=== PATIENT | male | born 1995 | race Native Hawaiian/Other Pacific Islander ===

== ENCOUNTER 2018-10-07 07:15 | Emergency (ER) | payer OTHER ==
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
[2018-10-07] MEDS ORDERED: IBUPROFEN PO ONE (09:44)
[2018-10-07] MEDS ORDERED: TESSALON PERLES PO ONE (09:44)
[2018-10-07] MEDS ORDERED: LIDOCAINE VISCOUS 2% MM ONE (09:45)
[2018-10-07] MEDS ORDERED: DECADRON IM ONE (10:06)
[2018-10-07] MEDS ORDERED: DUONEB *Not for PRN Use IH ONE (10:06)
--- NOTE | 2018-10-07 10:11 | XRay Report ---
PROCEDURE: XR CHEST ROUTINE 2V TECHNIQUE: Chest radiograph, PA and lateral views. HISTORY: cough COMPARISONS: None currently available. FINDINGS: Cardiac silhouette is within normal limits. AP film is overpenetrated. There are no suspicious osseous lesions. IMPRESSION: * No acute cardiac findings. * Overpenetrated film limits evaluation of the lungs. Repeat chest x-ray is recommended. This document is electronically signed by Juan Quiros MD., October 07 2018 10:08:38 AM ET
[2018-10-07 10:12] LABS: Hematocrit 46.2 % (35.5-45.6); Hemoglobin 15.6 gm/dl (11.8-15.2); Mean Corpuscular HGB Conc 34 % (32-34); Mean Corpuscular Volume 88 fl (84-94); Platelet Count 213 K/mm3 (140-440); Red Blood Count 5.24 M/mm3 (3.65-5.03); Red Cell Distribution Width 14.7 % (13.2-15.2)
[2018-10-07 10:51] LABS: BUN/Creatinine Ratio 23; Blood Urea Nitrogen 16 mg/dL (9-20); Calcium 9.2 mg/dL (8.4-10.2); Hemolysis Index 24
[2018-10-07 10:53] LABS: Total Cells Counted 100
[2018-10-07 10:54] LABS: Eosinophils % (Manual) 0 % (0.0-4.3); Platelet Estimate Consistent w Auto; RBC Morphology Normal
[2018-10-07] MEDS ORDERED: DECADRON IV ONE (10:58)
[2018-10-07 12:51] VITALS: BP 102/79
--- NOTE | 2018-10-07 13:05 | Cat Scan Report ---
PROCEDURE: CT ANGIO CHEST TECHNIQUE: Computerized tomographic angiography of the chest was performed after the IV injection of iodinated nonionic contrast including image processing. The image data was postprocessed using 2-di mensional multiplanar reformatted (MPR) and 3-dimensional (MIP and/or volume rendered) techniques. Au tomated exposure control, adjustment of mA and/or kV according to patient size, or iterative reconstr uction dose optimization techniques were utilized. Coronal and sagittal reconstructed imaging provide d. CT DOSE LENGTH PRODUCT: 377.6 mGy-cm. HISTORY: Shortness of breath. Chest pain COMPARISONS: None currently available. FINDINGS: No pneumothorax. No effusion. No consolidation. No endobronchial lesion. Main pulmonary artery is unremarkable. No pulmonary embolism. No aneurysm. No dissection. Major branch arteries are within normal limits. No significant atheroscle rotic disease. Cardiac silhouette is within normal limits. No pericardial effusion. No obvious coronary artery disea se. There is no axillary adenopathy. There is no hilar or mediastinal mass or adenopathy. Limited images of the thyroid gland are unremarkable. Limited images of the esophagus are unremarkable. Bones: No suspicious osseous lesions on this limited examination of the skeleton. Metastatic disease better evaluated with bone scan. Degenerative changes are present in the spine. IMPRESSION: * No acute findings. This document is electronically signed by Juan Quiros MD., October 07 2018 01:03:16 PM ET
== END 2018-10-07 13:30 | disposition home or self-care (01) ==
LOC: ED 07:15
DX: J40 Bronchitis, not specified as acute or chronic (principal)
CPT/HCPCS: 36415; 71046; 71275; 80048; 84484; 85007; 85025; 93005; 93010; 94640; 96374; 99284; J1100; Q9967

== ENCOUNTER 2019-06-02 10:10 | Emergency (ER) | payer OTHER ==
[2019-06-02 10:19] VITALS: BP 109/70
[2019-06-02] MEDS ORDERED: predniSONE 20 MG TAB PO ONE (12:12)
[2019-06-02] MEDS ORDERED: KETOROLAC 60 MG/2 ML INJ IM ONE (12:12)
--- NOTE | 2019-06-02 12:54 | XRay Report ---
LUMBAR SPINE 2 VIEWS. INDICATION / CLINICAL INFORMATION: MAIN: low back pains; Back pain and injury today; PAINFUL WHEN BENDING OVER COMPARISON: None available. FINDINGS: BONES / JOINT(S): No acute fracture or subluxation. No significant arthritis. SOFT TISSUES: No significant abnormality. ADDITIONAL FINDINGS: None. Signer Name: Rohith Jensen MD Signed: 06/02/2019 12:50 PM Workstation Name: [id number]
--- NOTE | 2019-06-02 13:19 | Emergency Department Report ---
ED Back Pain/Injury HPI - General Chief Complaint: Back Pain/Injury Stated Complaint: BACK PAIN Time Seen by Provider: 06/02/19 11:09 Source: patient Limitations: No Limitations - History of Present Illness Initial Comments: This is a 24-year-old male nontoxic, well nourished in appearance, no acute signs of distress presents to the ED with c/o of acute lower back pain. Patient stated that the past 2 days he was moving and developed this pain. Patient stated that he tried to lift heavy things at work and developed sharp pain. Patient denies any radiation of pain. Patient denies any trauma. Denies any bladder or bowel instability. Patient denies any urinary symptoms. Denies any fever, chills, nausea, vomiting, headache, stiff neck, chest pain or shortness of breath. Patient denies any numbness or tingling. Denies any allergies. Denies significant past medical history. MD Complaint: back pain -: days(s) (2) Place: work Radiation: none Severity: mild Severity scale (0 -10): 8 Quality: aching Improves With: immobilization, sitting upright Worsens With: movement, walking Context: while lifting, turning/twisting Associated Symptoms: denies other symptoms. denies: confusion, weakness, chest pain, numbness, difficulty walking, cough, difficulty urinating, diaphoresis, incontinence, fever/chills, constipation, headaches, abdominal pain, loss of appetite, malaise, nausea/vomiting, rash, seizure, shortness of breath, syncope - Related Data Previous Rx's Medication Instructions Recorded Last Taken Type HYDROcodone/ACETAMINOPHEN 1 each PO Q6HR PRN #12 tablet 10/01/18 Unknown Rx [Hydrocodone-Acetamin 5-325 mg] Ibuprofen [Ibu] 800 mg PO Q8H PRN #20 tablet 10/01/18 Unknown Rx methOCARBAMOL [Robaxin TAB] 500 mg PO Q6H PRN #14 tablet 10/01/18 Unknown Rx ALBUTEROL Inhaler(NF) [VENTOLIN 2 puff IH Q4-6H PRN #1 inha 10/07/18 Unknown Rx Inhaler(NF)] Prednisone [predniSONE 10 mg 10 mg PO .TAPER #1 tab.ds.pk 10/07/18 Unknown Rx (6-Day Pack, 21 Tabs)] Cyclobenzaprine [Flexeril] 10 mg PO QHS PRN #10 tablet 06/02/19 Unknown Rx Naproxen 500 mg PO Q12H PRN #20 tablet 06/02/19 Unknown Rx Allergies Allergy/AdvReac Type Severity Reaction Status Date / Time No Known Allergies Allergy Unverified 10/01/18 12:06 ED Review of Systems ROS: Stated complaint: BACK PAIN Other details as noted in HPI Constitutional: denies: chills, fever Eyes: denies: eye pain, eye discharge, vision change ENT: denies: ear pain, throat pain Respiratory: denies: cough, shortness of breath, wheezing Cardiovascular: denies: chest pain, palpitations Endocrine: no symptoms reported Gastrointestinal: denies: abdominal pain, nausea, diarrhea Genitourinary: denies: urgency, dysuria Musculoskeletal: back pain. denies: joint swelling, arthralgia Skin: denies: rash, lesions Neurological: denies: headache, weakness, paresthesias Psychiatric: denies: anxiety, depression Hematological/Lymphatic: denies: easy bleeding, easy bruising ED Past Medical Hx - Past Medical History Previous Medical History?: No - Surgical History Past Surgical History?: No - Social History Smoking Status: Never Smoker - Medications Home Medications: Home Medications Medication Instructions Recorded Confirmed Last Taken Type HYDROcodone/ACETAMINOPHEN 1 each PO Q6HR PRN #12 tablet 10/01/18 Unknown Rx [Hydrocodone-Acetamin 5-325 mg] Ibuprofen [Ibu] 800 mg PO Q8H PRN #20 tablet 10/01/18 Unknown Rx methOCARBAMOL [Robaxin TAB] 500 mg PO Q6H PRN #14 tablet 10/01/18 Unknown Rx ALBUTEROL Inhaler(NF) [VENTOLIN 2 puff IH Q4-6H PRN #1 inha 10/07/18 Unknown Rx Inhaler(NF)] Prednisone [predniSONE 10 mg 10 mg PO .TAPER #1 tab.ds.pk 10/07/18 Unknown Rx (6-Day Pack, 21 Tabs)] Cyclobenzaprine [Flexeril] 10 mg PO QHS PRN #10 tablet 06/02/19 Unknown Rx Naproxen 500 mg PO Q12H PRN #20 tablet 06/02/19 Unknown Rx ED Physical Exam - General Limitations: No Limitations General appearance: alert, in no apparent distress - Head Head exam: Present: atraumatic, normocephalic - Neck Neck exam: Present: normal inspection, full ROM. Absent: tenderness, meningism us, lymphadenopathy - Extremities Exam Extremities exam: Present: normal inspection, full ROM, normal capillary refill. Absent: tenderness - Back Exam Back exam: Present: normal inspection, full ROM, paraspinal tenderness (lumbar paraspinal spinal). Absent: tenderness, CVA tenderness (R), CVA tenderness (L), muscle spasm, vertebral tenderness, rash noted - Expanded Back Exam Expanded Back exam: Absent: saddle anesthesia Back exam: Negative Straight Leg Raising: Left, Right - Neurological Exam Neurological exam: Present: alert, oriented X3, normal gait - Psychiatric Psychiatric exam: Present: normal affect, normal mood - Skin Skin exam: Present: warm, dry, intact, normal color. Absent: rash ED Course Vital Signs 06/02/19 10:14 Temperature 97.8 F Pulse Rate 74 Respiratory 18 Rate Blood Pressure 109/70 O2 Sat by Pulse 95 Oximetry - Reevaluation(s) Reevaluation #1: 06/02/19 13:20 Patient is speaking in full sentences with no signs of distress noted. ED Medical Decision Making - Medical Decision Making This is a 24-year-old male that presents with low back strain. Patient is stable was examined by me. There is no spinal tenderness. There is no cauda equina syndrome during examination. No bladder or bowel instability. Patient received Toradol 60 mg IM and prednisone in the ED which stated that his symptoms has resolved and subsided. Patient is discharged with muscle relaxant and Motrin. Patient was instructed not to operate any machinery while taking muscle relaxant as they cause her drowsiness. Patient was referred to Follow-up with a primary care doctor in 3-5 days or if symptoms worsen and continue return to emergency room as soon as possible. At time of discharge, the patient does not seem toxic or ill in appearance. No acute signs of distress noted. Patient agrees to discharge treatment plan of care. No further questions noted by the patient. This chart is dictated with using [employer] Dict[employer] Google translation has been used during full examination, treatment and discharge instructions. Critical care attestation.: If time is entered above; I have spent that time in minutes in the direct care of this critically ill patient, excluding procedure time. ED Disposition Clinical Impression: Low back strain Qualifiers: Encounter type: initial encounter Qualified Code(s): S39.012A - Strain of muscle, fascia and tendon of lower back, initial encounter Disposition: - TO HOME OR SELFCARE Is pt being admited?: No Does the pt Need Aspirin: No Condition: Stable Instructions: Low Back Strain (ED), Cyclobenzaprine (By mouth) Additional Instructions: Follow-up with your primary care doctor in 3-5 days or if symptoms worsen such as bladder or bowel stability, chest pain, short of breath, numbness or tingling sensation in extremities, headache, dizziness, visual changes, nausea vomiting, or abdominal pain, return back to emergency room as was possible. Take ibuprofen and Flexeril as prescribed. Do not operate heavy machinery while taking Flexeril due to sedation Prescriptions: Cyclobenzaprine [Flexeril] 10 mg PO QHS PRN #10 tablet PRN Reason: Muscle Spasm Naproxen 500 mg PO Q12H PRN #20 tablet PRN Reason: Pain , Severe (7-10) Referrals: PRIMARY MD SOCORRO [Primary Care Provider] - 3-5 Days MARIA L HALL MD [Staff Physician] - 3-5 Days [facility] [Outside] - 3-5 Days Forms: Work/School Release Form(ED)
== END 2019-06-02 14:54 | disposition home or self-care (01) ==
LOC: ED 10:10
DX: S39.012A Strain of muscle, fascia and tendon of lower back, initial encounter (principal); Z79.1 Long term (current) use of non-steroidal anti-inflammatories (NSAID); Z79.899 Other long term (current) drug therapy; X58.XXXA Exposure to other specified factors, initial encounter; Y93.89 Activity, other specified; Y92.89 Other specified places as the place of occurrence of the external cause; Y99.8 Other external cause status
CPT/HCPCS: 72100; 96372; 99283; J1885; J7512

== ENCOUNTER 2021-07-22 10:12 | Emergency (ER) | payer SELFPAY ==
[2021-07-22] MEDS ORDERED: HYDROmorphone 1 MG/1 ML INJ IV ONE (10:16)
[2021-07-22] MEDS ORDERED: ONDANSETRON 4 MG/2 ML INJ IV ONE (10:16)
[2021-07-22] MEDS ORDERED: SODIUM CHLORIDE 0.9% 500 ML 500 ML IV ONE (10:16)
--- NOTE | 2021-07-22 10:18 | Emergency Department Report ---
ED Lower Extremity HPI - General Chief Complaint: Extremity Injury, Lower Stated Complaint: KNEE PAIN Time Seen by Provider: 07/22/21 10:16 Source: EMS Mode of arrival: Stretcher Limitations: No Limitations - History of Present Illness Initial Comments: Patient presents ambulance secondary to right knee pain. He was sitting at a [employer]. Apparently fell out of the chair injuring his right knee. EMS was called. They administered fentanyl. They noticed that his right knee was "dislocated." They brought him in for evaluation. Patient is only complaining of right knee pain. He did not hit his head or lose consciousness but has no chest pain or back pain. He states that his right knee is painful and is worse with any kind to palpation or attempted movement. Patient has no other injury reported. He states that his was sitting on his leg and that is what caused him to fall and dislocate his patella in the first place. He has no other injuries. - Related Data Previous Rx's Medication Instructions Recorded Last Taken Type Ibuprofen [Ibu] 800 mg PO Q8H PRN #20 tablet 10/01/18 Unknown Rx ALBUTEROL Inhaler(NF) [VENTOLIN 2 puff IH Q4-6H PRN #1 inha 10/07/18 Unknown Rx Inhaler(NF)] Allergies Allergy/AdvReac Type Severity Reaction Status Date / Time No Known Allergies Allergy Verified 07/22/21 10:17 ED Review of Systems ROS: Stated complaint: KNEE PAIN Other details as noted in HPI Comment: All other systems reviewed and negative Constitutional: denies: fever Eyes: denies: vision change ENT: denies: epistaxis Respiratory: denies: cough Cardiovascular: denies: chest pain Endocrine: denies: unexplained weight loss Gastrointestinal: denies: abdominal pain Genitourinary: denies: dysuria Musculoskeletal: as per HPI. denies: back pain Skin: denies: rash Neurological: denies: headache Hematological/Lymphatic: denies: easy bruising ED Past Medical Hx - Past Medical History Previous Medical History?: No - Family History Family history: no significant - Social History Smoking Status: Never Smoker - Medications Home Medications: Home Medications Medication Instructions Recorded Confirmed Last Taken Type Ibuprofen [Ibu] 800 mg PO Q8H PRN #20 tablet 10/01/18 Unknown Rx ALBUTEROL Inhaler(NF) [VENTOLIN 2 puff IH Q4-6H PRN #1 inha 10/07/18 Unknown Rx Inhaler(NF)] ED Physical Exam - General Limitations: No Limitations, Other (Pulse ox noted and normal) General appearance: alert, anxious, in distress (Uncomfortable but in no respiratory distress) - Head Head exam: Present: atraumatic, normocephalic - Eye Eye exam: Present: normal appearance, EOMI. Absent: scleral icterus - ENT ENT exam: Present: normal orophraynx, normal external ear exam - Neck Neck exam: Present: normal inspection. Absent: meningismus - Respiratory Respiratory exam: Present: normal lung sounds bilaterally. Absent: respiratory distress - Cardiovascular Cardiovascular Exam: Present: regular rate, normal rhythm - GI/Abdominal GI/Abdominal exam: Present: soft - Extremities Exam Extremities exam: Present: normal capillary refill, other (Obvious lateral dislocation of the patella on the right knee). Absent: calf tenderness - Back Exam Back exam: Absent: CVA tenderness (R), CVA tenderness (L) - Neurological Exam Neurological exam: Present: alert, oriented X3, CN II-XII intact. Absent: motor sensory deficit - Psychiatric Psychiatric exam: Present: normal mood, anxious - Skin Skin exam: Present: warm, dry ED Course Vital Signs 07/22/21 07/22/21 10:16 12:18 Temperature 98.0 F 97.6 F Pulse Rate 76 89 Respiratory 16 18 Rate Blood Pressure 115/76 129/78 [Left] O2 Sat by Pulse 99 98 Oximetry - Reevaluation(s) Reevaluation #1: 07/22/21 10:18 EMS was met upon arrival. Analgesics ordered. Patient has a patellar dislocation laterally. Reevaluation #2: 07/22/21 12:01 Patella has spontaneously dislocated. He would not allow me to reduce it after local anesthesia as well as parenteral opioids. X-rays were ordered. Reevaluation #3: 07/22/21 12:32 Radiographs were noted and the patient was discharged. ED Lower Extremity MDM - Radiology Data Radiology results: report reviewed - Medical Decision Making Patient presented with a right patellar dislocation. We were going to proceed with procedural sedation as he would not allow me to reduce this otherwise. The patella then spontaneously relocated. X-rays were obtained. Patient was subsequently discharged. I do not believe this was a true knee dislocation. I do not believe that this puts the patient at risk for vascular injury. There was no ankle injury or hip injury on the right. Critical Care Time: No Critical care attestation.: If time is entered above; I have spent that time in minutes in the direct care of this critically ill patient, excluding procedure time. ED Disposition Clinical Impression: Dislocation of right patella Qualifiers: Encounter type: initial encounter Qualified Code(s): S83.004A - Unspecified dislocation of right patella, initial encounter Disposition: HOME / SELF CARE / HOMELESS Is pt being admited?: No Condition: Stable Instructions: Patellar Dislocation, How to Use a Knee Brace Additional Instructions: Ice and elevate. Wear the knee brace. Return for problems. Follow-up with orthopedic surgery. Referrals: PRIMARY CARE, [Referring] - 3-5 Days LORETTA PEGUERO MD [Staff Physician] - 3-5 Days CONSTANCE HAMILTON MD [Staff Physician] - 3-5 Days Print Language: AZERI
[2021-07-22] MEDS ORDERED: ETOMIDATE 20 MG/10 ML INJ IV ONE (11:37)
[2021-07-22 12:18] VITALS: BP 129/78
--- NOTE | 2021-07-22 13:23 | XRay Report ---
RIGHT KNEE 3 VIEW(S) INDICATION / CLINICAL INFORMATION: patellar dislocation/relocation COMPARISON: None available. FINDINGS: BONES / JOINT(S): No acute fracture or subluxation. No significant arthritis. SOFT TISSUES: No significant abnormality. ADDITIONAL FINDINGS: None. Signer Name: Royer Leiva DO Signed: 07/22/2021 1:18 PM Workstation Name: [email or web address]
== END 2021-07-22 13:30 | disposition home or self-care (01) ==
LOC: ED 10:12
DX: S83.004A Unspecified dislocation of right patella, initial encounter (principal); X58.XXXA Exposure to other specified factors, initial encounter; Y93.89 Activity, other specified; Y92.89 Other specified places as the place of occurrence of the external cause; Y99.8 Other external cause status
CPT/HCPCS: 73562; 96374; 96375; 99283; J1170; J2405; J3490; J7040